=== PATIENT | female | born 1990 | race Caucasian/White ===

== ENCOUNTER 2021-06-09 19:42 | Emergency (ER) | payer OTHER, MEDICAID, SELFPAY ==
--- NOTE | 2021-06-09 | ECG_ITS ---
Test Reason : CHEST PAIN Blood Pressure : / mmHG Vent. Rate : 088 BPM Atrial Rate : 088 BPM P-R Int : 152 ms QRS Dur : 086 ms QT Int : 372 ms P-R-T Axes : 056 013 061 degrees QTc Int : 450 ms Normal sinus rhythm Nonspecific ST and T wave abnormality Borderline ECG No previous ECGs available Referred By: Generic ED Physician Electronically Signed By:ODESSA SEAMAN
--- NOTE | ~2021-06-09 | XR_ITS ---
EXAMINATION: XR CHEST CLINICAL INFORMATION: Shortness of breath COMPARISON: None TECHNIQUE: Frontal view of the chest was obtained. FINDINGS: No significant abnormality is noted involving the heart, lungs, mediastinum, bony thorax or soft tissues. XR/XR chest 1V IMPRESSION: Unremarkable examination.
[2021-06-09 19:47] VITALS: BP 139/88; PULSE 101; RESP 18; TEMP 36.5; O2SAT 100; BMI 35.0
--- NOTE | 2021-06-09 20:08 | ED_ITS ---
HPI - URI/Sore Throat General Chief Complaint: Upper Respiratory Symptoms Stated Complaint: chest pain ,sob Time Seen by Provider: 06/09/21 20:07 History of Present Illness HPI Narrative: Patient 30-year-old female presents today with coughing upper respiratory symptoms that is been ongoing since February getting better patient subsequently got COVID now getting worse again. Coughing productive of some clear sputum. Patient immunized for COVID x2. Patient denies any fever chills has chest pain last for few seconds. No diaphoresis. Patient has no history of diabetes, hypertension, mi, family history of RI. Positive history of smoking. No history of being on control. No history of leg swelling. No history of cancer no history of blood clots. Related Data Previous Rx's Medication Instructions Recorded azithromycin 250 mg tablet See Rx Instructions .ROUTE 06/09/21 .COMPLEX #6 tab ibuprofen 400 mg tablet 400 mg PO Q6H PRN #20 tab 06/09/21 Allergies Allergy/AdvReac Type Severity Reaction Status Date / Time latex AdvReac Itching Verified 06/09/21 19:47 Review of Systems Verdana 4l Review of Systems: Verdana 4d Positive coughing Verdana 4d positive upper respiratory symptoms all system review otherwise negative Verdana 4d PMFSH Past Medical History Attestation statement: The following information was validated with the patient. Surgical History Tubal ligation status Social History Social History Advance Directives: No Advance Directives Information Provided: No Patient : No Physical Exam Verdana 4l Vital Signs: Verdana 4d Verdana 4d Vital Signs: Verdana 4d Verdana 4Bd Last Vital Signs Verdana 4d Blister Pack Operator New 4d Blister Pack Operator New 4d Temp 99.0 F 06/09/21 21:07 Blister Pack Operator New 4d Pulse 80 06/09/21 21:07 Blister Pack Operator New 4d Resp 12 06/09/21 21:07 BP 122/76 06/09/21 21:07 Pulse Ox 98 06/09/21 21:07 BMI result Body Mass Index 35.0 Appearance: Alert. Oriented X3. No acute distress. Eyes: Pupils equal, round and reactive to light. ENT: Pharynx normal. Neck: Normal inspection. Neck supple. No lymph nodes noted. No crepitus CVS: Normal heart rate and rhythm. Pulses normal. Normal S1 and S2 Respiratory: No respiratory distress. Breath sounds normal. No Wheezing. No rales Abdomen: Soft and nontender. No rigidity. No distention. good BS x4 Skin: Skin warm and dry. Normal skin color. Normal skin turgor. Extremities: No lower extremity edema. Neurovascular intact to all extremities. No Lacerations. No Rash Neuro: Oriented X 3. No motor deficit. No sensory deficit. Moving all extermities. No slurred speech MDM - URI/Sore Throat MDM Narrative Medical decision making narrative: well-appearing no acute distress. EKG showed a sinus pattern heart rate is 90 NE QRS QT within normal limits is no acute ST segment elevation noted. Patient's lungs are clear. Positive coughing upper respiratory symptoms that is been ongoing for the last few months. Will get a chest x-ray. O2 sat is 100%. Will test for COVID as well chest pain is atypical for ACS given patient's age. Associated with cough. Only risk factor being smoking. No risk factors for PE. Chest x-ray was grossly negative for any acute evidence of pneumonia pneumothorax. Will discharge patient home. Told to stop smoking. Follow up on an outpatient basis Differential Diagnosis Differential diagnosis: Likely upper respiratory infection Medical Records Attestation: I reviewed the patient's medical records. Lab Data Attestation: I reviewed the patient's lab results. Labs: Lab Results 06/09/21 06/09/21 Range/Units 20:14 20:14 COVID-19 ([facility]) Negative (Negative) COVID-19 Clin Com See Note Influenza Type A ([facility]) Negative (Negative) Influenza Type B ([facility]) Negative (Negative) Influenza A & B Note See Note Discharge Plan Discharge Clinical Impression: Upper respiratory infection Patient Disposition: Home, Self-Care Instructions: Upper Respiratory Infection (DC) Prescriptions: New azithromycin 250 mg tablet See Rx Instructions .ROUTE .COMPLEX Qty: 6 0RF Rx Instructions: take 500 mg today (day 1), then 250 mg for 4 days (days 2-5) ibuprofen 400 mg tablet 400 mg PO Q6H PRN (Reason: pain) Qty: 20 0RF Referrals: Physician,None [Primary Care Provider] - 2 days
[2021-06-09 20:39] LABS: COVID-19 Test Negative (Negative); IDNOW Serial# 9DD0AD1C
[2021-06-09 20:40] LABS: Influenza A Negative (Negative); Influenza B2 Negative (Negative)
[2021-06-09 21:07] VITALS: BP 122/76; PULSE 80; RESP 12; TEMP 37.2; O2SAT 98
== END 2021-06-09 21:24 | disposition home or self-care (01) ==
PROVIDERS: Emergency Provider Emergency Medicine Emergency Medical Services
DX: J06.9 Acute upper respiratory infection, unspecified (principal); Z20.822 Contact with and (suspected) exposure to COVID-19
CPT/HCPCS: 71045; 87502; 87635; 93005; 99283; 99284